=== PATIENT | female | born 1965 | race Caucasian/White ===

== ENCOUNTER 2022-12-19 10:08 | Outpatient (CLI) | payer OTHER | END 2022-12-19 10:09 | disposition home or self-care (01) | LOC: BICRAD 10:08 | PROVIDERS: ATTEND Nurse Practitioner Family | DX: M25.552 Pain in left hip (principal); M54.50 Low back pain, unspecified; M47.816 Spondylosis without myelopathy or radiculopathy, lumbar region; M16.12 Unilateral primary osteoarthritis, left hip | CPT/HCPCS: 72120 ==